=== PATIENT | male | born 1970 | race Caucasian/White ===

== ENCOUNTER 2020-12-07 05:04 | Emergency (ER) | payer SELFPAY ==
[~2020-12-07] VITALS: Ht 185.4 cm; Wt 82.4 kg
[2020-12-07 05:11] VITALS: BP 120/81
--- NOTE | 2020-12-07 05:36 | NUR ---
pt sprawled out across the floor in the lobby sleeping. had to loudly call pts name 3 times before he answered. pt walked to treatment room with steady gait.
--- NOTE | 2020-12-07 05:43 | NUR ---
pt reported that he uses about a gram a day . injects. pt reports he hasnt used for 12 hours and is strting to get sick
[2020-12-07] MEDS ORDERED: buprenorphine/naloxone 8MG-2MG SUBlingual film SL SCH (06:10)
== END 2020-12-07 06:41 | disposition home or self-care (01) ==
LOC: ER 05:05
DX: F11.23 Opioid dependence with withdrawal (principal); R11.0 Nausea; R52 Pain, unspecified; I48.91 Unspecified atrial fibrillation; J44.9 Chronic obstructive pulmonary disease, unspecified; Z59.0 Homelessness
CPT/HCPCS: 99283